=== PATIENT | female | born 2000 | race Hispanic/Latino ===

== ENCOUNTER 2020-10-08 11:10 | Emergency (ER) | payer SELFPAY ==
--- NOTE | 2020-10-09 17:21 | ER ---
Nurse's Notes [facility] Name: Filiberto Aguilar Age: 20 yrs Sex: Female : 2000 Arrival Date: 10/08/2020 Time: 11:14 Bed 30 Private MD: Diagnosis: Coronavirus infection, unspecified;Chalazion left upper eyelid Presentation: 10/08 11:37 Chief complaint: Patient states: for about 4 days has had cough, congestion, runny nose vg1 and diarrhea. Denies NV. Pt states has a headache and neck feels sore; ROM intact. Pt denies dizziness or blurred vision. States dad and mom have tested Positive for Covid about a week ago. Coronavirus screen: Client denies travel out of the [place] in the last 14 days. Client presents with at least one sign or symptom that may indicate coronavirus-19. Standard/surgical mask placed on the client. Ebola Screen: Patient negative for fever greater than or equal to 101.5 degrees Fahrenheit, and additional compatible Ebola Virus Disease symptoms. Initial Sepsis Screen: Does the patient meet any 2 criteria? No. Patient's initial sepsis screen is negative. Does the patient have a suspected source of infection?. Risk Assessment: Do you want to hurt yourself or someone else? Patient reports no desire to harm self or others. Onset of symptoms was October 04, 2020. 11:37 Method Of Arrival: Ambulatory vg1 11:37 Acuity: JOSE ANTONIO 3 vg1 Triage Assessment: 11:42 General: Appears in no apparent distress. comfortable, Behavior is calm, cooperative. vg1 Pain: Complains of pain in head and neck. Respiratory: Reports cough that is non-productive, Airway is patent Respiratory effort is even, unlabored, Breath sounds are clear bilaterally. 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 - Social history:: Smoking status: Patient denies any tobacco usage or history of. Screenin:00 Abuse screen: Denies threats or abuse. Denies injuries from another. Nutritional ld1 screening: No deficits noted. Tuberculosis screening: No symptoms or risk factors identified. Fall Risk None identified. Assessment: 13:00 General: Appears in no apparent distress. comfortable, Behavior is calm, cooperative, ld1 appropriate for age. Pain: Complains of pain in face Pain does not radiate. Pain currently is 6 out of 10 on a pain scale. Quality of pain is described as throbbing, Pain began suddenly, Is continuous. Neuro: Level of Consciousness is awake, alert, obeys commands, Oriented to person, place, time, situation. Cardiovascular: Capillary refill < 3 seconds Patient's skin is warm and dry. Respiratory: Airway is patent Respiratory effort is even, unlabored, Respiratory pattern is regular, symmetrical. GI: Abdomen is flat, non-distended. : No signs and/or symptoms were reported regarding the genitourinary system. EENT: No signs and/or symptoms were reported regarding the EENT system. Derm: No signs and/or symptoms reported regarding the dermatologic system. Musculoskeletal: No signs and/or symptoms reported regarding the musculoskeletal system. 13:48 Reassessment: Patient appears in no apparent distress at this time. No changes from ld1 previously documented assessment. Patient and/or family updated on plan of care and expected duration. Pain level reassessed. Patient is alert, oriented x 3, equal unlabored respirations, skin warm/dry/pink. Vital Signs: 11:37 BP 114 / 67; Pulse 78; Resp 18; Temp 98.1; Pulse Ox 100% ; Weight 73.48 kg; Height 5 vg1 ft. 5 in. (165.10 cm); Pain 6/10; 13:00 BP 116 / 70; Pulse 62; Resp 18; Pulse Ox 100% on R/A; ld1 13:48 BP 120 / 77; Pulse 68; Resp 18; Pulse Ox 99% on R/A; ld1 11:37 Body Mass Index 26.96 (73.48 kg, 165.10 cm) vg1 ED Course: 11:14 Patient arrived in ED. mr 11:42 Triage completed. vg1 11:42 Arm band placed on Patient placed in waiting room, Patient notified of wait time. vg1 11:49 COVID swab sent to lab. Flu and/or RSV swab sent to lab. Strep swab sent to lab. vg1 12:26 Lori Shin FNP-C [facility]. kb 12:27 Kenn Danielle MD is Attending Physician. kb 12:59 Norah Gomez, RN is Primary Nurse. ld1 13:00 Patient has correct armband on for positive identification. Placed in gown. Bed in low ld1 position. Call light in reach. Side rails up X2. hall monitor on. Pulse ox on. NIBP on. 13:00 No provider procedures requiring assistance completed. ld1 13:48 Patient did not have IV access during this emergency room visit. ld1 Administered Medications: No medications were administered Outcome: 13:30 Discharge ordered by MD. kb 13:48 Discharged to home ambulatory. ld1 13:48 Condition: stable 13:48 Discharge instructions given to patient, Instructed on discharge instructions, follow up and referral plans. Demonstrated understanding of instructions, follow-up care. 13:49 Patient left the ED. ld1 Signatures: Lori Shin FNP-C FNP-Ckb JohnnieTami Natali Park, RN RN vg1 Norah Gomez, RN RN ld1
--- NOTE | 2020-10-09 17:22 | EDPHYS ---
Physician Documentation [facility] Name: Filiberto Aguilar Age: 20 yrs Sex: Female : 2000 Arrival Date: 10/08/2020 Time: 11:14 Bed 30 Private MD: ED Physician Kenn Danielle HPI: 10/08 14:55 This 20 yrs old Female presents to ER via Ambulatory with complaints of Cough, kb Congestion, Diarrhea. 14:55 The patient or guardian reports cough, flu symptoms, low-grade fever, myalgias. Onset: kb The symptoms/episode began/occurred 3 day(s) ago. Severity of symptoms: At their worst the symptoms were mild, moderate, in the emergency department the symptoms are unchanged. Modifying factors: The symptoms are alleviated by nothing, the symptoms are aggravated by nothing. Associated signs and symptoms: Pertinent positives: fever, rhinorrhea, Pertinent negatives: chest pain, diarrhea, ear ache, nausea, sore throat, vomiting. The patient has not experienced similar symptoms in the past. The patient has not recently seen a physician. Patient reports Covid symptoms for a few days. States mother and stepfather have Covid. 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 - Social history:: Smoking status: Patient denies any tobacco usage or history of. ROS: 14:50 Constitutional: Positive for fatigue, fever, malaise. kb 14:50 Eyes: Positive for bump under left upper eyelid. 14:50 ENT: Positive for rhinorrhea, sinus congestion. 14:50 Respiratory: Positive for cough, Negative for dyspnea on exertion, hemoptysis, orthopnea, pleurisy, shortness of breath, sputum production, wheezing. 14:50 All other systems are negative. 14:56 Abdomen/GI: Negative for abdominal pain, nausea, vomiting, diarrhea, and constipation. kb Exam: 14:50 Constitutional: This is a well developed, well nourished patient who is awake, alert, kb and in no acute distress. Head/Face: Normocephalic, atraumatic. ENT: Moist Mucous membranes Respiratory: Respirations even and unlabored. No increased work of breathing, no retractions or nasal flaring. Skin: Warm, dry with normal turgor. Normal color. MS/ Extremity: Pulses equal, no cyanosis. Neurovascular intact. Full, normal range of motion. Neuro: Awake and alert, GCS 15, oriented to person, place, time, and situation. Moves all extremities. Normal gait. Psych: Awake, alert, with orientation to person, place and time. Behavior, mood, and affect are within normal limits. 14:50 Eyes: Lids and lashes: chalazion. Vital Signs: 11:37 BP 114 / 67; Pulse 78; Resp 18; Temp 98.1; Pulse Ox 100% ; Weight 73.48 kg; Height 5 vg1 ft. 5 in. (165.10 cm); Pain 6/10; 13:00 BP 116 / 70; Pulse 62; Resp 18; Pulse Ox 100% on R/A; ld1 13:48 BP 120 / 77; Pulse 68; Resp 18; Pulse Ox 99% on R/A; ld1 11:37 Body Mass Index 26.96 (73.48 kg, 165.10 cm) 1 MDM: 12:42 Patient medically screened. kb 14:50 Data reviewed: vital signs, nurses notes. Data interpreted: Pulse oximetry: on room air kb is 99 %. Interpretation: normal. Counseling: I had a detailed discussion with the patient and/or guardian regarding: the historical points, exam findings, and any diagnostic results supporting the discharge/admit diagnosis, lab results, the need for outpatient follow up, a family practitioner, to return to the emergency department if symptoms worsen or persist or if there are any questions or concerns that arise at home. 10/08 11:46 Order name: Flu [facility] 10/08 11:46 Order name: Strep [facility] 10/08 11:46 Order name: COVID-19 : Document "Date of Symptom Onset" if Symptomatic. [facility] 10/08 11:47 Order name: Influenza Screen (A ; Complete Time: 12:31 [facility] 10/08 11:47 Order name: Group A Streptococcus Rapid Sc; Complete Time: 12:31 [facility] 10/08 12:29 Order name: Throat Culture [facility] 10/08 13:19 Order name: SARS-COV-2 RT PCR; Complete Time: 13:21 EDMS Administered Medications: No medications were administered Disposition: 16:33 Co-signature as Attending Physician, Kenn Danielle MD. rn Disposition Summary: 10/08/20 13:30 Discharge Ordered Location: Home kb Condition: Stable kb Diagnosis - Coronavirus infection, unspecified kb - Chalazion left upper eyelid kb Followup: kb - With: Emergency Department - When: As needed - Reason: Worsening of condition Followup: kb - With: Private Physician - When: 2 - 3 days - Reason: Recheck today's complaints, Continuance of care, Re-evaluation by your physician Discharge Instructions: - Discharge Summary Sheet kb - Chalazion kb - Viral Respiratory Infection, [id number] kb - COVID-19 kb Forms: - Medication Reconciliation Form kb - Thank You Letter kb - Antibiotic Education kb - Prescription Opioid Use kb Signatures: Dispatcher [employer] EDMS Lori Shin, HEATING OPERATORS ENGINEER-C HEATING OPERATORS ENGINEER-Kenn Craig MD MD rn Natali Park RN RN vg1 Corrections: (The following items were deleted from the chart) 12:16 11:47 CORONAVIRUS ordered. EDPR EDMS
[2020-10-10 06:46] VITALS: TEMP 98.1
[2020-10-10 06:51] VITALS: BP 120/77; O2SAT 99
== END 2020-10-08 13:49 | disposition home or self-care (01) ==
LOC: ER 11:10
DX: U07.1 COVID-19 (principal); H00.14 Chalazion left upper eyelid
CPT/HCPCS: 87070; 87081; 87804; U0003